=== PATIENT | female | born 2000 | race Caucasian/White ===

== ENCOUNTER 2025-03-23 16:02 | Emergency (ER) | payer OTHER, SELFPAY ==
[2025-03-23 16:20] VITALS: BP 133/84
[2025-03-23 16:41] LABS: Hematocrit 40.2 % (37.0-47.0); Hemoglobin 13.5 g/dL (12.0-16.0); Mean Corp Hgb Conc. 33.6 g/dL (33.0-37.0); Mean Corpuscular Volume 89.5 fL (81.0-99.0); Nucleated Red Blood Cells % 0 %; Platelet Count 231 10^3/uL (130-400); Red Cell Dist. Width 12.0 % (11.5-14.5)
[2025-03-23 16:47] LABS: INR 1.02; PT 13.7 Sec (11.4-14.6)
[2025-03-23 17:06] LABS: ALT (SGPT) 16 U/L (0-35); AST (SGOT) 19 U/L (14-36); Albumin 4.8 g/dl (3.5-5.0); Alkaline Phosphatase 72 U/L (38-126); Blood Urea Nitrogen 11 mg/dl (7-17); Calcium 9.9 mg/dl (8.4-10.2); Carbon Dioxide 26 mmol/L (22-30); Chloride 107 mmol/L (98-107); Glucose 97 mg/dl (70-99); Potassium 3.8 mmol/L (3.5-5.1); Sodium 140 mmol/L (135-145); Total Protein 7.5 g/dl (6.3-8.2); eGFR > 60.00
[2025-03-23 17:08] LABS: HCG, Serum Qualitative Screen Negative
--- NOTE | 2025-03-23 22:09 | ED.GENMED ---
History of Present Illness
General
Chief Complaint: DVT/Possible Blood Clot
Source: patient
Exam Limitations: none
Time Seen by Provider: 03/23/25 21:29
Nursing documentation reviewed up to this point in time: agreed with
History of Present Illness
History of Present Illness:
SEE MDM
Review of Systems
Review of Systems
Allergies reviewed?: Yes
All Other Systems: Not applicable
Phy Exam
Physical Exam
Physical Exam:
GENERAL: Alert , in no apparent distress
EYE: pupils equal and reactive
NECK: Supple
ENT: o/p clr, mmm.
CARDIAC: Regular rate and rhythm .very mild pedal edema L foot, normal pulse, normal color
LUNGS: Clear breath sounds bilaterally, no acute respiratory distress, no wheezes/rales/rhonchi
ABDOMEN: Soft, without focal tenderness, no r/g, no cvat, normal bowel sounds
NEUROLOGICAL: Alert and oriented, no focal neuro deficits
SKIN: Warm and dry, skin intact.
MUSCULOSKELETAL: L foot mildly edematous
normal color
2+ dp pulses
full ROM
nontender
ambuates normally
calf soft
compartments normal b/l
no erythema
PSYCH: Normal and appropriate interaction.
Course
Orders/Labs/Results
Orders:
Orders
03/23/25 16:22
Test Result ONCE
03/23/25 16:28
Complete Blood Count/With Diff Urgent
Comprehensive Metabolic Panel Urgent
HCG, Serum Qualitative Screen Urgent
Comment: Notify provider if positive test present
Prothrombin Time Urgent
03/23/25 16:34
US Legs, Bilateral [US Periph Venous LOWER Ext Valeriano] Urgent
Comment:
Reason For Exam: Calf pain, Swelling
03/23/25 21:42
CR Chest - 2 Views Urgent
Comment:
Reason For Exam: EDEMA LEGS
Abnormal Lab Results
03/23/25
16:28
MPV 12.0 H fL
(7.4-10.4)
03/23/25 16:28
03/23/25 16:28
Vital Signs
Initial and Last Documented VS:
Initial Vital Signs
Temp Pulse Resp BP Pulse Ox
36.9 C 95 18 133/84 100
03/23/25 16:20 03/23/25 16:20 03/23/25 16:20 03/23/25 16:20 03/23/25 16:20
Last Documented Vital Signs
Temp Pulse Resp BP Pulse Ox
36.9 C 75 18 114/74 99
03/23/25 16:20 03/23/25 22:25 03/23/25 22:25 03/23/25 22:25 03/23/25 22:25
MDM/Problems Addressed
Differential Diagnosis Includes:
see MDM
MDM/Problems Addressed:
Note:
CHIEF COMPLAINT(S)
Left lower extremity numbness, tingling, swelling, and heaviness following recent travel.
HISTORY OF PRESENT ILLNESS
The patient is a 25-year-old female who presents with symptoms of b/l feet swelling but L>R. These symptoms began during a recent trip to [facility]. she felw there 1 week ago and naveed menon was having pain in her L foot and had some blisters
from walking but she still was able to walk around. she flew home ysterday and then woke up with both feet swollen.
throughout the day, she noticed the L foot get more swollen and the edema is pitting
she also feels the foot is like pins and needles and 'heavy.'. she has had some chronic back pain for years, but denies ever having work up
she has no back pain now attributing it to previous high jumping activities in high school.
Past evaluations by a progressive care manager in June reported as follows: the patient underwent an electrocardiogram, echocardiogram, and wore a Holter monitor, which indicated episodic presyncope; however, personal blood pressure findings and testing
were unremarkable.
denies CP, SOB, inability to walk, foot drop
PLAN
1. Recommend elevation of the affected extremity and the use of compression stockings to assist in mitigating edema.
2. Monitor for any worsening signs, such as significant discoloration, increased swelling, fever, chills, or the presence of foot drop, which would necessitate immediate medical attention.
3. Reassurance provided regarding the negative vascular findings; no immediate further diagnostic tests are planned considering adequate distal perfusion and pulses.
4. Follow up if symptoms persist or worsen.
DIFFERENTIAL DIAGNOSIS
The Differential Diagnosis includes, in no particular order and is not limited to:
1. Peripheral neuropathy
2. Deep vein thrombosis (excluded based on negative Doppler studies)
3. Lumbar radiculopathy
4. Venous insufficiency
5. Edema due to travel and prolonged sitting
6. Peripheral artery disease
7. Complex regional pain syndrome
8. Musculoskeletal strain or injury
9. Fluid retention due to dietary changes
10. Referred pain or sensation from spinal etiologies
Physical exam: See above
03/23/2025 2215 PM
25-year-old female with no chronic medical problems here after a long flight to and from [facility] with pedal edema, worsening on the left than the right. She also feels some [id number] and subjective heaviness of her foot. Patient has not had
any chest pain or shortness of breath. She is not on oral contraceptives, no family history of clots. She has not been coughing or had any fever or chills. On exam she has very minimal nonpitting edema of her left foot, full painless range of
motion of the ankle and foot, soft calf, normal compartments, circulation intact, normal gross sensation and patient is able to ambulate without difficulty
Her workup here was unremarkable with negative or normal labs, a negative bilateral Dopplers for DVT and I did order a chest x-ray because I question whether she had some crackles in her left base however the chest x-ray was independently reviewed
by me and negative. This is likely just peripheral edema. She can wear compression stockings, watch salt intake
*Pulse Oximetry
SaO2: 100
Oxygen Mode of Delivery: Room air
Patient hypoxic: no (99)
*Critical Care Note
Total Time (30-74mins, 75-104mins- exclusive of procedures): Not Applicable
ED Attending Note
-
Portions of this chart may have been created with voice recognition software.� Occasional wrong word or��sound alike� substitutions may have occurred due to the inherent limitations of voice recognition software.
Discharge Plan
Departure
Patient Disposition: Home (Routine Discharge)
Date of Disposition: 03/23/25
Time of Disposition: 22:16
Patient with high blood pressure during this ER visit?: No
Condition: Fair
Covid-19: Not Applicable
Discharge Problem:
Pedal edema
Instructions: Swelling
Referrals:
Martita Luciano MD [Family Provider, Family Practice] - Follow up in 5-7 days
Stand Alone Forms: Return to Work
Activity Restrictions/Additional Instructions:
Your swelling is likely due to his peripheral edema. Watch your salt intake. Use compression stockings over the next couple of days while you are up and about. Otherwise elevate your legs when you are at rest. This should resolve. Your workup
here was reassuring. Return for color change, foot drop, numbness that is worsening, weakness, chest pain or shortness of breath. Otherwise please follow-up with your doctor for further workup if this persists.
Interventions
Interventions:
*Risk Screen - Suicide Last Done: 03/23/25 16:20
*General Assessment Last Done: 03/23/25 16:20
*Neglect/Abuse Screening Last Done: 03/23/25 21:32
*ED- Fall Risk Assessment Last Done: 03/23/25 21:32
*ED COVID-19 Vaccine History Last Done: 03/23/25 21:32
*Nursing Disposition Last Done: 03/23/25 22:31
ED- Cardiac Assessment Last Done: 03/23/25 21:32
ED- Pulmonary Assessment Last Done: 03/23/25 21:32
ED-Peripheral Vascular Assessment Last Done: 03/23/25 21:32
ED-Skin Assessment Last Done: 03/23/25 21:32
Discharge Date and Time
Discharge Date/Time: 03/23/25 22:33
Print Language: GUYANESE
[2025-03-23 22:25] VITALS: BP 114/74
== END 2025-03-23 22:33 | disposition home or self-care (01) ==
LOC: EMR 16:02
PROVIDERS: Emergency Medicine; EMERGENCY PHYSICIAN Emergency Medicine; FAMILY PHYSICIAN Family Medicine
DX: R60.0 Localized edema (principal); M54.9 Dorsalgia, unspecified; G89.29 Other chronic pain
CPT/HCPCS: 99284; 71046; 80053; 84703; 85025; 85610; 93970